=== PATIENT | female | born 1985 | race Caucasian/White ===

== ENCOUNTER 2020-02-28 16:49 | Inpatient (IN) | payer BC ==
[~2020-02-28] VITALS: Ht 154.9 cm; Wt 108.0 kg
[2020-02-28] MEDS ORDERED: OXYTOCIN 30U/ 0.9% NaCL 500ML 500 ML IV PRN ×2 (17:13→22:42)
[2020-02-28] MEDS ORDERED: LACTATED RINGERS 1,000 ML IV SCH ×2 (17:13→22:27)
[2020-02-28] MEDS ORDERED: FENTANYL/BUPIV./NS/PF 250 ML EPIDCONT SCH ×2 (17:13→22:27)
[2020-02-28] MEDS ORDERED: D5%-LACTATED RINGERS 1,000 ML IV SCH (17:13)
[2020-02-28] MEDS ORDERED: OXYTOCIN 30U/ 0.9% NaCL 500ML 500 ML IV ONE (17:13)
[2020-02-28] MEDS ORDERED: SODIUM CITRATE/CITRIC ACID 30 ML UDC PO PRN (17:30)
[2020-02-28] MEDS ORDERED: PLEASE ENTER HEIGHT AND WEIGHT MC SCH (17:30)
[2020-02-28] MEDS ORDERED: ALUMINUM/MAG/SIMETHICONE 30 ML UDC PO PRN (17:30)
[2020-02-28] MEDS ORDERED: LACTATED RINGERS 1,000 ML IVBOLUS PRN (17:30)
[2020-02-28] MEDS ORDERED: TERBUTALINE 1 MG/ML, 1ML IVPush PRN (17:30)
[2020-02-28] MEDS ORDERED: TERBUTALINE 1 MG/ML, 1ML SQ PRN (17:30)
[2020-02-28] MEDS ORDERED: METOCLOPRAMIDE 5 MG/ML, 2ML IVPush PRN (17:30)
[2020-02-28] MEDS ORDERED: CALCIUM CARBONATE 500 MG TAB.CHEW PO PRN (17:30)
[2020-02-28] MEDS ORDERED: ONDANSETRON 2MG/ML, 2ML IVPush PRN (17:30)
[2020-02-28] MEDS ORDERED: FENTANYL PF 100 MCG/2ML IVPush PRN (17:30)
[2020-02-28 18:02] LABS: BASOPHILS # (AUTO) 0.01 x10^3/uL (0-0.1); BASOPHILS % (AUTO) 0 % (0-1); EOSINOPHILS # (AUTO) 0.05 x10^3/uL (0-0.4); EOSINOPHILS % (AUTO) 1 % (1-7); LYMPHOCYTES # (AUTO) 1.61 x10^3/uL (1-3.4); LYMPHOCYTES % (AUTO) 16 % (22-44); MD NO; MEAN CORPUSCULAR HEMOGLOBIN 32.5 pg (27.0-34.8); MEAN CORPUSCULAR HGB CONC 33.4 g/dL (32.4-35.8); MEAN CORPUSCULAR VOLUME 97.3 fL (80-100); MEAN PLATELET VOLUME 8.8 fL (7.4-10.4); MONOCYTES # (AUTO) 0.62 x10^3/uL (0.2-0.8); MONOCYTES % (AUTO) 6 % (2-9); NEUTROPHILS # (AUTO) 8.03 x10^3/uL (1.8-6.8); NEUTROPHILS % (AUTO) 78 % (42-75); PLATELET COUNT 172 x10^3/uL (130-400); RED BLOOD COUNT 4.36 x10^6/uL (3.82-5.3); RED CELL DISTRIBUTION WIDTH 13.4 % (9.6-15.2)
[2020-02-28] MEDS ORDERED: NEWBORN KIT ONE (18:19)
[2020-02-28] MEDS ORDERED: MISOPROSTOL 200 MCG TABLET ONE (19:18)
[2020-02-28] MEDS ORDERED: LIDOCAINE 1%, 20ML ONE (19:18)
[2020-02-28] MEDS ORDERED: OXYTOCIN 30U/ 0.9% NaCL 500ML 500 ML ONE (19:19)
[2020-02-28 19:44] VITALS: BP 128/73
[2020-02-28] MEDS ORDERED: FENTANYL/BUPIV./NS/PF 250 ML EPIDCONT ONE (19:52)
[2020-02-28] MEDS ORDERED: FENTANYL PF 100 MCG/2ML ONE (21:56)
[2020-02-28] MEDS ORDERED: BUPIVACAINE 0.25% ONE ×2 (21:56→22:00)
[2020-02-28] MEDS ORDERED: LIDOCAINE/PF 1.5-EPI 1:200K, 30 ML ONE (22:00)
[2020-02-28] MEDS ORDERED: FENT 2mcg/ml BUPIV 0.125%NS/PF EPIDCONT ONE (22:00)
[2020-02-28 23:45] LABS: CREATININE,URINE RANDOM 38.5 mg/dL
[2020-02-29 00:09] LABS: ALANINE AMINOTRANSFERASE 14 U/L (12-78); ALBUMIN 2.5 g/dL (3.4-5.0); ANION GAP 7 mmol/L (5-15); BILIRUBIN, DIRECT 0.1 mg/dL (0.1-0.2); CALCIUM 8.2 mg/dL (8.5-10.1); CHLORIDE 111 mmol/L (98-107); CREATININE 0.56 mg/dL (0.55-1.02)
[2020-02-29 00:12] LABS: ALKALINE PHOSPHATASE 139 U/L (45-117); BILIRUBIN,TOTAL 0.3 mg/dL (0.2-1.0); TOTAL PROTEIN 6.6 g/dL (6.4-8.2)
[2020-02-29] MEDS ORDERED: ONDANSETRON 2MG/ML, 2ML IV PRN (03:30)
[2020-02-29] MEDS ORDERED: OXYcodone/APAP 5/325MG TABLET PO PRN (03:30)
[2020-02-29] MEDS ORDERED: BISACODYL 10 MG SUPP PR PRN (03:30)
[2020-02-29] MEDS ORDERED: MISOPROSTOL 200 MCG TABLET PR PRN (03:30)
[2020-02-29] MEDS ORDERED: HYDROcodone/APAP 5/325 TABLET PO PRN (03:30)
[2020-02-29] MEDS ORDERED: RHOGAM FROM BLOOD BANK 1 NOTE EA IM/IV ONE (03:30)
[2020-02-29] MEDS ORDERED: DEXTROSE 47%, 15GM GEL ONE (04:13)
[2020-02-29] MEDS: OXYTOCIN 30U/ 0.9% NaCL 500ML 500 ML IV SCH ×3 (04:30→23:13)
[2020-02-29 04:55] VITALS: BP 127/77
[2020-02-29] MEDS: PRENATAL VIT/IRON/FA 1 EACH TABLET PO SCH (07:30)
[2020-02-29] MEDS: IBUPROFEN 800 MG TABLET PO PRN ×3 (07:30→23:32)
[2020-02-29] MEDS: DOCUSATE 100 MG CAPSULE PO PRN ×2 (07:30→22:59)
[2020-02-29 07:50] VITALS: BP 123/79
[2020-02-29 11:21] LABS: MEAN CORPUSCULAR HEMOGLOBIN 32.3 pg (27.0-34.8); MEAN CORPUSCULAR HGB CONC 33.3 g/dL (32.4-35.8); MEAN CORPUSCULAR VOLUME 96.8 fL (80-100); MEAN PLATELET VOLUME 8.6 fL (7.4-10.4); PLATELET COUNT 133 x10^3/uL (130-400); RED BLOOD COUNT 3.89 x10^6/uL (3.82-5.3); RED CELL DISTRIBUTION WIDTH 13.4 % (9.6-15.2)
[2020-02-29 11:56] LABS: BASOPHILS # (AUTO) 0.02 x10^3/uL (0-0.1); BASOPHILS % (AUTO) 0 % (0-1); EOSINOPHILS # (AUTO) 0.03 x10^3/uL (0-0.4); EOSINOPHILS % (AUTO) 0 % (1-7); LYMPHOCYTES # (AUTO) 1.41 x10^3/uL (1-3.4); LYMPHOCYTES % (AUTO) 13 % (22-44); MD SCAN; MONOCYTES # (AUTO) 0.67 x10^3/uL (0.2-0.8); MONOCYTES % (AUTO) 6 % (2-9); NEUTROPHILS # (AUTO) 8.85 x10^3/uL (1.8-6.8); NEUTROPHILS % (AUTO) 81 % (42-75)
[2020-02-29 13:00] VITALS: BP 110/73
[2020-02-29 19:50] VITALS: BP 120/74
[2020-02-29] MEDS: ACETAMINOPHEN 325 MG TABLET PO PRN (22:59)
[2020-03-01] MEDS: ACETAMINOPHEN 325 MG TABLET PO PRN (05:22)
[2020-03-01 07:30] VITALS: BP 111/70
[2020-03-01] MEDS: PRENATAL VIT/IRON/FA 1 EACH TABLET PO SCH (07:30)
[2020-03-01] MEDS: IBUPROFEN 800 MG TABLET PO PRN (07:30)
[2020-03-01] MEDS ORDERED: DOCU-131 PO (07:50)
[2020-03-01] MEDS ORDERED: IBUP-1223 PO (07:50)
== END 2020-03-01 08:55 | disposition home or self-care (01) | DRG 805 ==
LOC: LDOP 16:49 → LDIP 17:40 → 2NW 02-29 04:23
PROVIDERS: ADMIT Obstetrics & Gynecology; ATTEND Obstetrics & Gynecology
PROC: 10E0XZZ Delivery of Products of Conception, External Approach (ICD-10-PCS; principal; 2020-02-29)
DX: O34.211 Maternal care for low transverse scar from previous cesarean delivery (principal); O45.93 Premature separation of placenta, unspecified, third trimester; Z37.0 Single live birth; O76 Abnormality in fetal heart rate and rhythm complicating labor and delivery; O77.0 Labor and delivery complicated by meconium in amniotic fluid; Z3A.40 40 weeks gestation of pregnancy; Z82.3 Family history of stroke
CPT/HCPCS: 36415; 80053; 82248; 82570; 82803; 82962; 84156; 84550; 85025; 86592; 86850; 86900; 88307; G0378; J3490; J2590; J3010; J7120